=== PATIENT | male | born 1970 | race Caucasian/White ===

== ENCOUNTER → 2021-05-18 08:44 | Outpatient (CLI) | payer OTHER, SELFPAY ==
[2021-05-18 22:48] LABS: COVID19 - ORCAS (NP or Nasal) Negative (Negative)
== END ==
PROVIDERS: PCP Family Medicine; Visit Provider Physician Assistant
DX: Z20.822 Contact with and (suspected) exposure to COVID-19 (principal); J06.9 Acute upper respiratory infection, unspecified
CPT/HCPCS: U0003